=== PATIENT | male | born 1955 | race Caucasian/White ===

== ENCOUNTER 2019-04-03 23:01 | Inpatient (IN) | payer MEDICARE, MEDICAID ==
[~2019-04-03] VITALS: Ht 185.4 cm; Wt 127.5 kg
--- NOTE | ~2019-04-03 | PR ---
[place], [place] PROGRESS NOTE NAME: JED MCGINNIS UNIT #: [id number] ROOM: 316 DOCTOR: JED CAM MD BIRTHDATE: [birth year] DOS: 04/05/2019 INTERVAL NOTE CHIEF COMPLAINT: "Morning." SUMMARY OF THE VISIT: The patient was interviewed as he was resting in bed. After I called his name out several times, he woke up and very tersely stated good morning. Nurses report that this is generally how he speaks more in short bursts. In general, he has been compliant and has not been sexually inappropriate. He has been compliant with aspects of his care and his medications. MENTAL STATUS: He is alert and oriented to person, unclear place or time. Mood does seem to be fairly euthymic. Affect appropriate. No david, hypomania or psychosis. Short-term memory is very poor. PLAN: Screening examinations revealed him to have a low vitamin D level of 28. He is already on vitamin D replacement. He also has a low B12 level of 214. I will go ahead and replace this with vitamin B12 injection of 1000 mcg monthly. I will simultaneously increase the Namenda from 5 mg a day to 5 mg twice a day while increasing Exelon patch from 4.6 mg a day to 9.5 mg a day. Maintain Celexa, engage in individual and sharpe milieu activity, returning to the least restrictive environment when psychiatrically stable. EJD CAM MD CM:PNTRANS 48 JED CAM MD 04/05/19 1848 interface
--- NOTE | ~2019-04-03 | PR ---
[place], [place] PROGRESS NOTE NAME: JED MCGINNIS UNIT #: [id number] ROOM: 316 DOCTOR: JED CAM MD BIRTHDATE: [birth year] DOS: 04/10/2019 INTERVAL NOTE CHIEF COMPLAINT: "Coffee." SUMMARY OF THE VISIT: The patient was attempted to be interviewed as he was resting in bed. He awoke easily. The minute he saw me he stated coffee, coffee, and he does seem to associate me with coffee. He was pleasant, however, and smiled readily. Nurses report no behaviors. He has been pleasant and cooperative. He has not been sexually acting out in any way. MENTAL STATUS: It is limited due to his communication issues, but he seems bright, pleasant and cooperative, very euthymic. There was no agitation or aggression, no sedation or somnolence, no extrapyramidal symptoms or tardive dyskinesia. PLAN: I will continue his current psychotropics. Continue to engage in individual and sharpe milieu activity, returning to the least restrictive environment when psychiatrically stable. JED CAM MD CM:PNTRANS 0 JED CAM MD 04/10/19 1009 interface
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
--- NOTE | ~2019-04-03 | PR ---
[place], [place] PROGRESS NOTE NAME: JED MCGINNIS UNIT #: [id number] ROOM: 316 DOCTOR: JED CAM MD BIRTHDATE: [birth year] DOS: 04/09/2019 CHIEF COMPLAINT: "Coffee." SUMMARY OF THE VISIT: The patient was interviewed as he was resting in bed. As I approached, he smiled readily and quickly started to ask for coffee. He must equate me with coffee. He was pleasant and bright. There was no agitation, no aggression. There was no sexually inappropriate behavior. An overall nurses report that he has been much more compliant with care. He has not been resistive. He has not exhibited any sexually inappropriate behavior. MENTAL STATUS: He is alert and oriented to self only. Mood does seem to be trending towards euthymia. Affect is much more appropriate. There is no david, hypomania or psychosis. Short term memory, intermediate memory and long-term memory have gaps. PLAN: I will maintain his current psychotropic regimen, continue to engage in individual and sharpe milieu activity, returning then to the least restrictive environment when psychiatrically stable. JED CAM MD CM:PNTRANS [id number] JED CAM MD 04/10/19 0429 interface
--- NOTE | ~2019-04-03 | PR ---
[place], [place] PROGRESS NOTE NAME: JED MCGINNIS UNIT #: [id number] ROOM: 315 DOCTOR: JED CAM MD BIRTHDATE: [birth year] DOS: 04/11/2019 CHIEF COMPLAINT: "Coffee." SUMMARY OF THE VISIT: The patient was interviewed as he was eating his breakfast. He had most, if not all, of it completed and he was sipping on coffee. As I approached, once again, he smiled readily shaking my hand. He was bright and pleasant. Overall, his behavior has taken 180 degrees change from admission and he is very pleasant and cooperative. There has been no sexually inappropriate behavior. There has been no agitation or aggression. MENTAL STATUS: It is limited due to his dysphagia. He smiles readily and seemed bright and happy. There is no david or hypomania. There is no gross psychosis. Memory is poor. PLAN: I will recheck a valproic acid level in the a.m. on 04/13/2019 to ensure that it is therapeutic. Meanwhile, we will continue to engage in individual and sharpe milieu activity, returning to the least restrictive environment when psychiatrically stable. JED CAM MD CM:PNTRANS 1013 0053 JED CAM MD 04/12/19 0052 interface
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
--- NOTE | ~2019-04-03 | PR ---
[place], [place] PROGRESS NOTE NAME: DONNELL MCGINNIS UNIT #: [id number] ROOM: 315 DOCTOR: TANYA ZHOU CNP BIRTHDATE: [birth year] DOS: 04/13/2019 CHIEF COMPLAINT: "I am Donnell Jimenez." SUMMARY OF THE VISIT: The patient was interviewed as he sat in the dining room, waiting for his breakfast. He did engage in conversation. The patient reports that he slept okay and that he is hungry. Staff reports that the patient has been compliant with his medications. He did have a large bowel movement yesterday, which he did smear on the kasper and it was everywhere. Otherwise, there has been no behaviors with the patient, he did sleep 5 hours last night. He has been taking medication as prescribed. MENTAL STATUS EXAMINATION: The patient is alert and oriented to person and self. He was pleasant and cooperative with me this morning. No david or hypomania noted. No delusions or paranoia noted. No psychotic symptoms noted. No auditory or visual hallucinations noted. The patient's mood was euthymic. His affect is smiling. No agitation, irritability or aggression noted at this time. PLAN: The patient's VPA level was 57.8. I will continue the patient's medication as prescribed as he appears to be tolerating it without side effects and it does appear to be effective. Continue to encourage the patient to engage in individual and sharpe milieu activity. Continue fall and safety precautions. Plan is to return the patient to the least restrictive environment once he is considered psychiatrically stable. Tanya Zhou CNP CM:PNTRANS 0002 TANYA ZHOU CNP 04/14/19 0001 interface
--- NOTE | ~2019-04-03 | PR ---
[place], [place] PROGRESS NOTE NAME: JED MCGINNIS UNIT #: [id number] ROOM: 316 DOCTOR: JED CAM MD BIRTHDATE: [birth year] DOS: 04/07/2019 CHIEF COMPLAINT: "Coffee, coffee." SUMMARY OF THE VISIT: The patient was interviewed as he was sitting at the edge of the dining area. He was sipping on coffee, which was now empty. As I approached, he smiled readily and yelled out coffee, coffee, repeatedly smiling and shaking his head yes. He was pleasant and cooperative. Nurses note that he has been much more compliant and he has been not at all sexually inappropriate with any female peer or female staff member. He has been found masturbating in his room, which is perfectly okay as he has only done this in the privacy of his own bedroom. He does outwardly seem to be tolerating the current medication regimen well. I see no sedation, somnolence, extrapyramidal symptoms or tardive dyskinesia. MENTAL STATUS: He is alert and oriented to self, place, perhaps not to time. Mood does seem to be euthymic. Affect is much more appropriate. There is no david, hypomania or psychosis. Short term memory remains problematic. PLAN: His valproic acid level is just therapeutic at 55.7. I will go ahead and increase the Depakote from 500 mg t.i.d. to 500 mg q.i.d. in an attempt to bring the level between 60 and 80. Continue to engage in individual and sharpe milieu activity, returning to the least restrictive environment when psychiatrically stable. JED CAM MD CM:PNTRANS 0930 1026 JED CAM MD 04/07/19 1026 interface
--- NOTE | ~2019-04-03 | PR ---
[place], [place] PROGRESS NOTE NAME: JED MCGINNIS UNIT #: [id number] ROOM: 316 DOCTOR: JED CAM MD BIRTHDATE: [birth year] DOS: 04/08/2019 INTERVAL NOTE CHIEF COMPLAINT: "Coffee." SUMMARY OF THE VISIT: The patient was interviewed in the dining area. He was sitting in front of an almost strong cup of black coffee. He had already eaten breakfast. As I approached, he smiled pointed to his coffee and again loudly stated coffee, coffee. Overall, he has been much more pleasant and much more redirectable. There has been no sexual acting out over the last several days and he is pleasant upon approach. He is tolerating the medication regimen well and I see no sedation, somnolence, extrapyramidal symptoms or tardive dyskinesia. MENTAL STATUS: He is alert and oriented to self, unclear place, certainly not time. Mood does seem to be more euthymic and he smiles more readily. There is no hypomania or david. There are no gross psychotic symptoms. Memory has gaps. PLAN: I would maximize out his dose of Exelon patch, bringing the dose from 9.5 to 13.3 mg a day. We will continue to engage in individual and sharpe milieu activity, returning to the least restrictive environment when psychiatrically stable. JED CAM MD CM:PNTRANS 0921 1039 JED CAM MD 04/08/19 1039 interface
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
--- NOTE | ~2019-04-03 | PR ---
[place], [place] PROGRESS NOTE NAME: [id number] UNIT #: [id number] ROOM: 315 DOCTOR: TANYA ZHOU CNP BIRTHDATE: [birth year] DOS: 04/12/2019 CHIEF COMPLAINT: "I am Bill." SUMMARY OF THE VISIT: The patient was interviewed as he sat in the dining room, eating his breakfast. The patient did engage in conversation with me; however, he is unable to answer questions appropriately and his speech was somewhat nonsensical. Staff reports that the patient can refuse his medications. He has been isolative and irritable and that he remains confused. MENTAL STATUS EXAMINATION: The patient was alert and oriented to person and self. He was pleasant with me. No david or hypomania noted. No delusions or paranoia noted. No psychotic symptoms noted. No auditory or visual hallucinations noted. The patient's mood was calm. His affect is congruent with mood. No agitation or irritability or aggression noted at this time. PLAN: I am going to continue the patient's medication as prescribed at this time. He is scheduled for a VPA level tomorrow morning. Continue to monitor for effectiveness of medication as well as side effects. Continue to encourage the patient to engage in individual and sharpe milieu activity. Continue fall and safety precautions. Plan is to return the patient to the least restrictive environment once he is considered psychiatrically stable. Tanya Zhou CNP CM:PNTRANS 1000 [id number] TANYA ZHOU CNP 04/12/19 2339 interface
[2019-04-04] MEDS ORDERED: HALDOL5 MG PO (00:07)
[2019-04-04] MEDS ORDERED: ZOLOFT50 MG PO (00:07)
[2019-04-04] MEDS ORDERED: THERAPEUTIC T (00:09)
[2019-04-04] MEDS ORDERED: Tegretol-Xr 20200 MG PO (00:10)
[2019-04-04] MEDS ORDERED: KEPPRA500 MG PO (00:11)
[2019-04-04] MEDS ORDERED: TEGRETOL200 MG PO (00:12)
[2019-04-04] MEDS ORDERED: KLOR-CON M2020 ME1 PO (00:14)
[2019-04-04] MEDS ORDERED: VITAMIN D32000 UNI1 PO (00:14)
[2019-04-04] MEDS ORDERED: CALCIUM + D3 E1 EACH PO (00:15)
[2019-04-04] MEDS ORDERED: LASIX40 MG PO (00:16)
[2019-04-04] MEDS ORDERED: ASPIRIN ADULT L81 M1 PO (00:16)
[2019-04-04] MEDS ORDERED: LIPITOR10 MG PO (00:17)
[2019-04-04] MEDS ORDERED: MIRALAX POWDER17 G1 PO (00:18)
[2019-04-04] MEDS ORDERED: NATURE'S BLEND M3 MG PO (00:18)
[2019-04-04 03:50] VITALS: BP 130/60
--- NOTE | 2019-04-04 03:50 | NUR ---
JED MCGINNIS a 63 year old M admitted via ambulance from the ADMITTING as a emergency 72 hr. hold admission. Arrived on unit at 0350AM. ALLERGIES: INDERAL, CT DYE, TUBERCULIN TEST. Vital signs are: 97.1-72-17 130/60. CLIENT WAS PINK SLIPPED AND UNABLE TO sign the following forms with stated understanding: Authorization For The Release of Medical Information, Clothing List, Consent to Voluntary Admission and Hospitalization, Consent and Release Forms/Receipt of Rights, Acknowledgement of Advance Directive Information, Behavioral Health Consent Form, and Informed Consent of Medications. Admitted under the services of JED Shanks MD. A search was conducted and hazardous articles were removed. Client WILL BE oriented to the unit. CURRENTLY CLIENT REFUSES TO PARTICIPATE IN ADMISSION PROCESS OR SPEAK TO AND STAFF MEMBER. REFUSES SKIN ASSESSMENT SUGEY JEONG
--- NOTE | 2019-04-04 05:59 | NUR ---
DR CHAMORRO HERE TO SEE CLIENT. ALL PAPERWORK PROVIDED. ALL QUESTIONS ANSWERED
[2019-04-04 07:56] VITALS: BP 123/68
--- NOTE | 2019-04-04 08:06 | NUR ---
DR. STRAUSS ON UNIT TO ASSESS PATIENT.
--- NOTE | 2019-04-04 09:36 | NUR ---
Treatment Plan meeting was held this a.m. with Dr. Jeong, RN, AT, SW and [employer] Machine Operator. Plan for discharge next week. [facility] Will reach out to facility today to discuss discharge planning.
--- NOTE | 2019-04-04 09:37 | NUR ---
Clinical Updates faxed to [facility] [place] [facility] [place].
--- NOTE | 2019-04-04 10:52 | NUR ---
Left a voicemail message for pt's daughter/guardian Ariana Melgar requesting a return call.
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
--- NOTE | 2019-04-04 14:10 | NUR ---
Occupational Therapy evaluation completed on 3 with full eval to follow. Precautions include 3N unit precautions, elopement precautions, TBI hx, impulsive behavior, +2 transfer assist, assist with all ADLs, CROW, high complexity level 63248 via chart review, testing and evaluation. Recommend no further OT and return to LTC with 24 hr supervision and assist. Thank you. Kori Yousif OTR/L
--- NOTE | 2019-04-04 14:10 | NUR ---
PHYSICAL THERAPY Physical therapy evaluation only complete, 3N. Moderate complexity evaluation (77100) per chart review and evaluation. Recommend continued gait and mobility with 1 assist from nursing for safety. Recommend return to LTC facility at discharge. Thank you. Marilu Belcher,PT,DPT.
--- NOTE | 2019-04-04 16:37 | NUR ---
VOLUNTARY CONSENT VERBAL CONSENT WITH GUARDIAN, TIANA HERNANDEZ.
--- NOTE | 2019-04-04 16:58 | NUR ---
P: PATIENT IN BED PLAYING RECTUM AND FECES I: REDIRECTED AND BED BATH PROVIDED R: EFFECTIVE. PATIENT IS ALERT TO SELF WITH CONFUSION; ABLE TO VOICE NEEDS. LONG/SHORT TERM MEMORY DEFICITS. MOOD IS STABLE WITH FLAT AFFECT. NO VOICED STATEMENT OF HI/SI OR PAIN. NO RESPONSE TO INTERNAL STIMULI. 1 PERSON ASSIST WITH ACTIVITIES OF DAILY LIVING, INCONTINENT OF BOWEL AND BLADDER. SET UP FOR MEALS, INTAKES ARE GOOD WITH ADEQUATE FLUIDS. INTERACTIVE WITH STAFF AND UP IN DINING ROOM WITH OTHER PATIENTS. MEDICATION COMPLAINT. Q 15 MINUTE SAFETY CHECKS MAINTAINED. NO SEXUALLY INAPPROPRIATELY GESTURES/STATEMENTS. NO AGGRESSION NOTED. P: CONTINUE TO MONITOR FOR AGGRESSION AND SEXUALLY INAPPROPRIATE BEHAVIORS, PROVIDE ONE ON ONE AND REDIRECTION NEEDED.
[2019-04-04 19:31] VITALS: BP 130/73
--- NOTE | 2019-04-04 22:03 | NUR ---
Patient alert to person only with confusion. ST/LT memory deficits noted. Patient has not had any verbal response to this nurse. No signs of any response to internal stimuli noted at this time. No signs of any sexually inappropriate behavior,words,or gestures at this time. Patient compliant with medications without any difficulty. Patient isolative to room this evening. Plan to continue to encourage medication compliance. Q 15 minute medication compliance continued and maintained. See [facility] flowsheet for further documentation.
--- NOTE | 2019-04-05 00:32 | NUR ---
24 HR chart check completed.
--- NOTE | 2019-04-05 04:54 | NUR ---
Patient slept approx. 9 hours throughout shift. Q 15 minute safety checks continued and maintained.
[2019-04-05 07:14] LABS: BASO # 0.1 10*3/uL (0.0-0.1); EOS # 0.3 10*3/uL (0.0-0.4); EOS % 4.6 % (1.0-4.0); HEMATOCRIT 39.7 % (42.0-52.0); HEMOGLOBIN 13.2 g/dl (14.0-18.0); LYMPH # 2.6 10*3/uL (1.3-4.4); LYMPH % 37.4 % (27.0-41.0); MEAN CELL VOLUME 98.8 fl (80.0-94.0); MEAN CORPUSCULAR HGB 32.8 pg (27.0-31.0); MEAN CORPUSCULAR HGB CONC 33.2 g/dl (33.0-37.0); MEAN PLATELET VOLUME 9.6 fl (9.6-12.3); MONO # 0.5 10*3/uL (0.1-1.0); MONO % 7.6 % (3.0-9.0); NEUT # 3.5 10*3/uL (2.3-7.9); NEUT % 49.3 % (47.0-73.0); PLATELET COUNT AUTOMATED 260 10*3/uL (130-400); RED BLOOD COUNT 4.02 10*6/uL (4.50-5.90); RED CELL DISTRI WIDTH 12.4 % (0-14.5)
[2019-04-05 07:37] LABS: ALKALINE PHOSPHATASE 128 U/L (45-117); BUN 15 mg/dl (7-24); CHLORIDE 107 mmol/L (98-107); POTASSIUM 3.7 mmol/L (3.5-5.1); SGOT/AST 19 IU/L (3-35); SGPT/ALT 24 U/L (12-78); SODIUM 141 mmol/L (136-145); TOTAL PROTEIN 6.8 gm/dL (6.4-8.2)
[2019-04-05 07:43] LABS: THYROID STIM HORMONE (HS) 0.865 uIU/ml (0.358-4.75)
[2019-04-05 07:52] VITALS: BP 142/60
--- NOTE | 2019-04-05 10:30 | NUR ---
DR. STRAUSS ON UNIT TO ASSESS PATIENT.
--- NOTE | 2019-04-05 12:32 | NUR ---
AM GROUP/EXERCISE/BINGO! PT ATTENDED AND PARTICIPATED IN ALL GROUP ACTIVITY'S. PT DID NEED SOME HELP MARKING BINGO NUMBERS WHICH A PEER ASSITED HIM WITH. PT DID BECOME AGITATED YELLING OUT "OH SHIT!" BUT EASILY REDIRECTED. PT DID NOT EXPRESS ANY SEXUALLY INAPPRORIATE BEHVIOR OR ANXIETY AT THIS TIME. PT WILL CONTINUE TO ATTEND AND PARTICIPATE IN GROUP TO BEST OF ABILITY.
--- NOTE | 2019-04-05 13:12 | NUR ---
PATIENT RECEIVED VITAMIN B12 1000MCG IM IN LEFT DELTOID AND TOLERATED WELL.
--- NOTE | 2019-04-05 15:52 | NUR ---
PM GROUP/FOOTBALL/ART PT ATTENDED AN DPARTICIPATED BY WATCHING FOOTBALL GAME. PT PLEASANT BUT WAS BOTHERED BY ANOTHER PT WANDERING ACTIVITY ROOM PT KEPT YELLIN G"SIT DOWN, SIT DOWN!" PT EASILY REDIRECTED.PT DID NOT EXPRESS ANY SEXUALLY INAPPROPRIATE BEHAVIORS AT THIS TIME AN DIWLL CONTINUE TO ATTEND AN DPARTICIPATE TO BEST OF PT ABILITY IN FUTURE RGOUP SESSIONS.
--- NOTE | 2019-04-05 18:42 | NUR ---
PATIENT IS ALERT TO SELF WITH CONFUSION. MEMORY DEFICITS NOTED. MOOD IS STABLE. NO RESPONSE TO INTERNAL STIMULI. NO VOICED STATEMENT OF HI/SI OR PAIN. MEDICATION COMPLAINT. Q 15 MINUTE SAFETY CHECKS MAINTAINED, 2-3 PERSON ASSIST WITH ACTIVITIES OF DAILY LIVING, INCONTINENT OF BOWEL AND BLADDER. SET UP FOR MEALS, INTAKES ARE GOOD WITH ADEQUATE FLUIDS. CONTINUE TO MONITOR FOR AGGRESSION AND SEXUALLY INAPPROPRIATE BEHAVIORS. PROVIDE ONE ON ONE AND REDIRECTION NEEDED.
[2019-04-05 20:00] VITALS: BP 140/78
--- NOTE | 2019-04-06 04:58 | NUR ---
P-IRRITABLE MOOD, CONFUSION I-ASSESS ORIENTATION, MOOD, AND BEHAVIOR. PROVIDE 1:1 FOR VENTILATION OF FEELINGS WITH EMOTIONAL SUPPORT NEEDED. ENCOURAGE MEDICATION COMPLIANCE AND EDUCATE. MONITOR SLEEP. R- PATIENT ALERT AND ORIENTED TO SELF, CONFUSED PER BASELINE. PT ISOLATIVE TO SELF, SAT IN DINING ROOM FOR HS SNACK AND TO WATCH A MOVIE. PT BECAME IRRITABLE WHILE OBSERVING ANOTHER PEER'S BEHAVIORS, STARTED YELLING AT PEER STATING "YOU NEED TO SIT DOWN, WHAT ARE YOU DOING". PT UNRECEPTIVE TO REDIRECTION AND STATES "OH SHIT, SHIT!" PT MEDICATION COMPLIANT WITHOUT DIFFICULTY, UNABLE TO EDUCATE DUE TO COGNITION. PT ASSISTED TO BED WITH MINIMALLY DIFFICULTY, COMPLIANT WITH HOC, NO SEXUALLY INAPPROPRIATE BEHAVIOR NOTED. PT VOICES NO SI/HI OR PAIN. NO NOTED RESPONDING TO INTERNAL STIMULI. PATIENT CURRENTLY LAYING DOWN WITH EYES CLOSED, RESPIRATIONS EASY AND REGULAR, NO SIGNS OR SYMPTOMS OF DISTRESS NOTED. P-CONTINUE TO MONITOR MOODS AND BEHAVIORS. PROVIDE REORIENTATION AND REDIRECTION NEEDED. PROVIDE 1:1 WITH EMOTIONAL SUPPORT. ENCOURAGE MEDICATION COMPLIANCE AND EDUCATE. MAINTAIN Q 15 MIN CHECKS.
--- NOTE | 2019-04-06 06:01 | NUR ---
PATIENT OBSERVED ON Q 15 MIN CHECKS TO HAVE SLEPT APPROX 2 HOURS WITH MULTIPLE AWAKENINGS NOTED DURING STAFF CHECKS OF LAYING QUIETLY IN BED. NO SIGNS OR SYMPTOMS OF DISTRESS NOTED.
--- NOTE | 2019-04-06 06:46 | NUR ---
24 HOUR CHART CHECK COMPLETED.
[2019-04-06 07:54] VITALS: BP 135/75
--- NOTE | 2019-04-06 09:03 | NUR ---
Patient resting quietly with no c/o discomfort. Respirations easy and regular. Vital signs stable. No overt distress. MADIHA CAMPBELL
--- NOTE | 2019-04-06 12:31 | NUR ---
AM GROUP/BIRDHOUSES/MUSIC PT ATTENDED AND PARTICIPATED BY OBSERVING PEERS. PT SMILING AND LAUGHING THORUGHOUT GROUP.PT DID NOT EXPRESS ANY SEXUALLY INAPPROPRIATE BEHAVIORS AT THIS TIME AND WILL CONTINUE TO ATTEND AN DPARTICIPATE TO BEST OF PT ABILITY.
[2019-04-06 20:00] VITALS: BP 134/79
--- NOTE | 2019-04-06 23:10 | NUR ---
P-IRRITABILITY, CONFUSION I-ASSESS ORIENTATION, MOOD, AND BEHAVIOR. REORIENT AND REDIRECT NEEDED. PROVIDE 1:1 FOR VENTILATION OF FEELINGS WITH EMOTIONAL SUPPORT NEEDED. ENCOURAGE MEDICATION COMPLIANCE AND EDUCATE. MONITOR SLEEP. R- PATIENT ALERT AND ORIENTED TO SELF, CONFUSED PER BASELINE. PT ISOLATIVE TO ROOM AND BED SINCE BEGINNING OF SHIFT, MOOD STABLE. MINIMAL IRRITABILITY/ AGITATION NOTED DURING INTERACTIONS WITH STAFF OR HANDS ON CARE, PT STATES "OH SHIT". NO SEXUALLY IN APPROPRIATE BEHAVIOR NOTED. PT MEDICATION COMPLIANT WITHOUT DIFFICULTY, UNABLE TO EDUCATE DUE TO COGNITION. PT VOICES NO SI/HI OR PAIN. NO NOTED RESPONDING TO INTERNAL STIMULI. PATIENT CURRENTLY LAYING DOWN WITH EYES CLOSED, RESPIRATIONS EASY AND REGULAR, NO SIGNS OR SYMPTOMS OF DISTRESS NOTED. P-CONTINUE TO MONITOR MOODS AND BEHAVIORS. PROVIDE REORIENTATION AND REDIRECTION NEEDED. PROVIDE 1:1 WITH EMOTIONAL SUPPORT. ENCOURAGE MEDICATION COMPLIANCE AND EDUCATE. MAINTAIN Q 15 MIN CHECKS.
--- NOTE | 2019-04-07 00:45 | NUR ---
24 HOUR CHART CHECK COMPLETED.
--- NOTE | 2019-04-07 05:01 | NUR ---
PATIENT OBSERVED ON Q 15 MIN CHECKS TO HAVE SLEPT APPROX 7 HOURS WITH X1 BRIEF AWAKENING FOR INCONTINENT CARE. NO SIGNS OR SYMPTOMS OF DISTRESS NOTED.
[2019-04-07 08:17] VITALS: BP 141/76
--- NOTE | 2019-04-07 10:46 | NUR ---
DR. SHEPPARD ON UNIT TO ASSESS PT, UPDATE PROVIDED.
--- NOTE | 2019-04-07 12:33 | NUR ---
AM GROUP PT WAS PRESENT FOR MORNING GROUP THERAPY BUT DID NOT PARTICIPATE. PT WAS SLEEPING IN A CHAIR AT THE BACK OF THE ROOM
--- NOTE | 2019-04-07 13:49 | NUR ---
P: PT REFUSED 1300 PO MEDS. PT IRRITABLE WITH STAFF AT TIMES THROUGHOUT THE DAY. PT ISOLATIVE TO SELF THROUGHOUT THE DAY, REFUSING TO PARTICIPATE IN GROUPS/ACTIVITES. I: PROVIDED EMOTIONAL SUPPORT AND 1:1 FOR PT TO VOICE FEELINGS, ENCOURAGED MED COMPLIANCE AND PROVIDED MED EDUCATION, ENCOURAGE GROUP PARTICIPATION AND SOCIALIZATION R: UNABLE TO PROVIDE MED EDUCATION D/T COGNITION, PT CONTINUES TO REFUSE 1300 PO MEDS. PT CONTINUED TO REFUSE TO PARTICIPATE IN GROUP, CHOOSING TO NAP IN THE BACK OF THE ROOM INSTEAD. PT ALERT TO PERSON ONLY, CONFUSION AND SHORT TERM MEMORY DEFICITS NOTED PER PT BASELINE. PT AMBULATORY WITH 1 STAFF ASSIST, GAIT UNSTEADY. PT INCONTINENT OF BOWEL AND BLADDER, CARE PROVIDED NEEDED. P: MONITOR PT BEHAVIORS ON Q15 MIN SAFETY CHECKS, ENCOURAGE GROUP PARTICIPATION AND SOCIALIZATION, ENCOURAGE MED COMPLIANCE, PROVIDE EMOTIONAL SUPPORT AND 1:l FOR PT TO VICE FEELINGS
--- NOTE | 2019-04-07 17:13 | NUR ---
PM GROUP/MUSIC/ART PT ATTENDED AND PARTICIPATED TO BEST OF ABILITY. PT TAPPING FOOT TO MUSIC, OBSERVING PEERS, AND DRINKING COFFE. PT SMILING THROUGHOUT GROUP. PT DID NOT BECOME AGGRESSIVE OR SEXUALLY INAPPROPRIATE AT THIS TIME AN DWILL CONTIBNUE TO ATTEND AN DPARTICIPATE TO BEST OF PT ABILITY.
[2019-04-07 19:17] VITALS: BP 138/62
--- NOTE | 2019-04-07 19:59 | NUR ---
24 HR chart check completed.
--- NOTE | 2019-04-07 20:34 | NUR ---
EVENING/RIDDLES/GAMES PT ATTENDED BUT DID NOT PARTICIPATE AT THIS TIME DUE TO LEVELS OF COGNITION. PT WILL CONTINUE TO BE ENCOURAGED TO ATTEND AN DPARTICIPATE TO BEST OF ABILITY IN FUTURE GROUP SESSIONS. PT DID NOT BECOME AGGRESSIVE OR SEXUALLY INAPPROPRIATE AT THIS TIME.
--- NOTE | 2019-04-07 23:03 | NUR ---
P-CONFUSION, MILDLY IRRITABLE I-PROVIDE SHORT VERBAL INTERACIONS & DIRECTIVES, ADMINISTER MEDS, MONITOR SLEEP R-PT ALERT TO PERSON ONLY. COGNITIVE DEFICITS, SPENT THE EVENING SITTING IN THE DINING ROOM WATCHING A FOOTBALL GAME QUIETLY AMONG PEERS. VERY LIMITED WITH VERBAL INTERACTIONS & MOSTLY SMILES AT STAFF. REQUIRED PROMPTING TO TAKE HS MEDICATIONS. STATED, "COFFEE". WHEN PROMPTED TO GO TO BED, HE REPLIED "AH SHIT". P-CONTINUE TO MONITOR. PROVIDE PHYSICAL ASSISTANCE & EMOTIONAL SUPPORT NEEDED.
--- NOTE | 2019-04-08 05:29 | NUR ---
PT HAS SLEPT PAST 0000
[2019-04-08 07:44] VITALS: BP 142/65
--- NOTE | 2019-04-08 08:30 | NUR ---
Treatment Plan meeting with Dr. Jeong, RN, AT, SW and Hoop Riveting Machine Operator Helper. Plan for discharge Sunday with Possible Sunday discharge. Pt. is LTC at [facility].
--- NOTE | 2019-04-08 10:06 | NUR ---
DR. VALLADARES ON UNIT TO ASSESS PT, UPDATE PROVIDED.
--- NOTE | 2019-04-08 11:49 | NUR ---
AM GROUP/POSITIVITY PT WAS PRESENT FOR MORNING GROUP THERAPY BUT IS UNABLE TO PARTICIPATE DUE TO COGNITIVE IMPAIRMENT. PT SAT AT A TABLE AND FELL ASLEEP IN A SEATED POSITION.
--- NOTE | 2019-04-08 12:15 | NUR ---
P: PT IRRITABLE WITH MED ADMINISTRATION. PT ISOLATIVE TO SELF, NO SOCIALIZATION WITH STAFF OR PEERS. I: PROVIDE EMOTIONAL SUPPORT AND 1:l FOR PT TO VOICE FEELINGS, ENCOURAGE MED COMPLIANCE AND PROVIDE MED EDUCATION, ENCOURAGE GROUP PARTICIPATION AND SOCIALIZATION R: PT ALERT TO PERSON ONLY, CONFUSION AND SHORT TERM MEMORY DEFICITS NOTED PER PT BASELINE. PT CONTINUES TO BE IRRITABLE WITH MEDS, COMPLIANT WITH MUCH ENCOURAGEMENT, UNABLE TO PROVIDE MED EDUCATION D/T COGNITION. PT CONTINUES TO BE ISOALTIVE TO SELF. NO HALLUCINATIONS OR DELUSIONS NOTED. NO SUICIDAL THOUGHTS OR BEHAVIORS NOTED. PT AMBULATORY WITH 1-2 STAFF ASSIST. PT CONTINENT OF BOWEL AND BLADDER, EPISODES OF INCONTNENCE NOTED, CARE PROVIDED NEEDED. P: MONTIOR PT BEHAVIORS ON Q15 MIN SAFETY CHECKS, ENCOURAGE MED COMPLIANCE, PROVIDE EMOTIONAL SUPPORT AND 1:1 FOR PT TO VOICE FEELINGS, ENCOURAGE GROUP PARTICIPATION AND SOCIALIZATION.
--- NOTE | 2019-04-08 13:58 | NUR ---
Received a message from pt's dtr/guardian Ariana Melgar stating that she is unable to obtain information about pt because she does not have a password. Phoned Ariana and left a message providing an update about pt and supplying a password for her. Password was also written on pt board in treatment team room. Pt will smile at this marine underwriter when spoken to but does not speak. No inappropriate behavior was observed by this marine underwriter.
--- NOTE | 2019-04-08 15:45 | NUR ---
PM GROUP/ART AND MUSIC PT WAS PRESENT FOR AFTERNOON GROUP THERAPY BUT IS UNABLE TO PARTICIPATE AT THIS TIME DUE TO COGNITIVE IMPAIRMENT. PT SMILES WHEN SPOKEN TO BUT DOES NOT VERBALLY RESPOND. PT EXHBITED NO AGGRESSIVE OR INAPPROPRIATE BEHAVIORS WHILE IN GROUP.
[2019-04-08 19:17] VITALS: BP 141/72
--- NOTE | 2019-04-08 20:05 | NUR ---
24 HR chart check completed.
--- NOTE | 2019-04-08 22:40 | NUR ---
P-CONFUSION, MILDLY IRRITABLE I-PROVIDE SHORT VERBAL INTERACIONS & DIRECTIVES, ADMINISTER MEDS, MONITOR SLEEP R-PT ALERT TO PERSON ONLY. COGNITIVE DEFICITS, SAT IN THE DINING ROOM BRIEFLY & ATE SNACK. VERY LIMITED WITH VERBAL INTERACTIONS & MOSTLY SMILES AT STAFF. COMPLIANT WITH HS MEDICATIONS. P-CONTINUE TO MONITOR. PROVIDE PHYSICAL ASSISTANCE & EMOTIONAL SUPPORT NEEDED.
--- NOTE | 2019-04-09 05:35 | NUR ---
PT SLEPT PAST 2099.
[2019-04-09 08:09] VITALS: BP 134/69
--- NOTE | 2019-04-09 11:53 | NUR ---
AM GROUP PT WAS PRESENT FOR MORNING GROUP THERAPY BUT IS UNABLE TO PARTICIPATE DUE TO COGNITIVE IMPAIRMENT.
--- NOTE | 2019-04-09 15:40 | NUR ---
PM GROUP PT DID NOT ATTEND AFTERNOON GROUP THERAPY. PT WAS IN BED RESTING
[2019-04-09 19:44] VITALS: BP 137/62
--- NOTE | 2019-04-10 03:19 | NUR ---
P-IRRITABILITY, CONFUSION I-ASSESS ORIENTATION, MOOD, AND BEHAVIOR. REORIENT AND REDIRECT NEEDED. PROVIDE 1:1 FOR VENTILATION OF FEELINGS WITH EMOTIONAL SUPPORT NEEDED. ENCOURAGE MEDICATION COMPLIANCE AND EDUCATE. MONITOR SLEEP. R- PATIENT ALERT AND ORIENTED TO SELF, CONFUSED PER BASELINE. PT CALM, MOOD STABLE. MINIMAL IRRITABILITY/ AGITATION NOTED DURING INTERACTIONS WITH STAFF OR HANDS ON CARE, PT STATES "OH SHIT". NO SEXUALLY IN APPROPRIATE BEHAVIOR NOTED. PT REFUSED HS MEDICATIONS, STATING "I AINT TAKING THAT", UNABLE TO EDUCATE OR REDIRECT DUE TO COGNITION. PT VOICES NO SI/HI OR PAIN. NO NOTED RESPONDING TO INTERNAL STIMULI. PATIENT CURRENTLY LAYING DOWN WITH EYES CLOSED, RESPIRATIONS EASY AND REGULAR, NO SIGNS OR SYMPTOMS OF DISTRESS NOTED. P-CONTINUE TO MONITOR MOODS AND BEHAVIORS. PROVIDE REORIENTATION AND REDIRECTION NEEDED. PROVIDE 1:1 WITH EMOTIONAL SUPPORT. ENCOURAGE MEDICATION COMPLIANCE AND EDUCATE. MAINTAIN Q 15 MIN CHECKS.
--- NOTE | 2019-04-10 05:10 | NUR ---
24 HOUR CHART CHECK COMPLETED.
--- NOTE | 2019-04-10 06:14 | NUR ---
PATIENT OBSERVED ON Q 15 MIN SAFETY CHECKS TO HAVE SLEPT APPROX 6 HOURS WITH NO AWAKENINGS OR SIGNS AND SYMPTOMS OF DISTRESS NOTED.
[2019-04-10 07:48] VITALS: BP 144/70
--- NOTE | 2019-04-10 08:30 | NUR ---
Treatment Plan meeting with Dr. Jeong, RN, AT, and Watch Repairer. Plan for discharge Sunday. Pt. will return to [facility].
--- NOTE | 2019-04-10 11:52 | NUR ---
AM GROUP PT DID NOT ATTEND MORNING GROUP THERAPY. PT WAS IN BED RESTING
--- NOTE | 2019-04-10 14:37 | NUR ---
P: PT ISOLATIVE TO ROOM, REFUSING TO COME OUT FOR AM GROUP, BREAKFAST OR LUNCH. PT REFUSED AM PO MEDS. I: ENCOURAGED MED COMPLIANCE AND PROVIDE MED EDUCATION, PROVIDE EMOTIONAL SUPPORT AND 1:! FOR PT TO VOICE FEELINGS, ENCOURAGE PO INTAKE, ENOCURAGE GROUP PARTICIPATION AND SOCIALIZATION R: ALL INTERVENTIONS INEFFECTIVE, UNABLE TO PROVIDE MED EDUCATION D/T COGNITION. PT CONTINUES TO REFUSE MEDS, BREAKFAST, LUNCH AND GROUP. PT ALERT TO PERSON ONLY, CONFUSION AND SHORT TERM MEMORY DEFICITS NOTED PER PT BASELINE. NO HALLUCINATIONS OR DELUSIONS NOTED. NO SUICIDAL THOUGHTS OR BEHAVIORS NOTED. P: MONITOR PT BEHAVIORS ON Q15 MIN SAFETY CHECKS, ENCOURAGE MED COMPLIANCE, ENCOURAGE PO INTAKE, ENCOURAGE GROUP PARTICIPATION AND SDOCIALIZATION, PROVIDE EMOTIONAL SUPPORT AND 1:l FOR PT TO VOICE FEELINGS.
--- NOTE | 2019-04-10 15:48 | NUR ---
PM GROUP/MOVIE AND CRAFTS PT WAS PRESENT FOR AFTERNOON GROUP THERAPY BUT IS UNABLE TO PARTICIPATE DUE TO COGNITIVE IMPAIRMENT. PT SAT AT A TABLE AND SMILED THE ENTIRE TIME. PT DOES NOT CONVERSE OR SHOW ANY INTEREST IN THE ACTIVITIES OF PEERS. PT EXHIBITED NO AGITATION, AGGRESSION OR SEXUAL INAPPROPRIATENESS WHILE IN GROUP
[2019-04-10 20:09] VITALS: BP 139/72
--- NOTE | 2019-04-11 02:31 | NUR ---
24 HR chart check completed.
--- NOTE | 2019-04-11 04:58 | NUR ---
Patient alert to person only with confusion. ST/LT memory deficits noted. Patient has not had any verbal response to this nurse. No signs of any response to internal stimuli noted at this time. No signs of any sexually inappropriate behavior,words,or gestures at this time. Patient compliant with medications with much encouragement. Patient isolative to room this evening. Plan to continue to encourage medication compliance. Q 15 minute medication compliance continued and maintained. See [facility] flowsheet for further documentation.
--- NOTE | 2019-04-11 05:25 | NUR ---
Patient slept approx. 7 hours throughout shift. Q 15 minute safety checks continued and maintained.
[2019-04-11 08:00] VITALS: BP 118/67
--- NOTE | 2019-04-11 08:30 | NUR ---
Treatment Plan meeting with Dr. Jeong, RN, AT, and [facility]. Plan for discharge Sunday. Pt. is LTC at [facility].
--- NOTE | 2019-04-11 09:28 | NUR ---
PATIENT REFUSED ALL AM MEDICATIONS. MULTIPLE REAPPROACHES AND EDUCATION PROVIDED, ALL ATTEMPTS INEFFECTIVE.
--- NOTE | 2019-04-11 10:40 | NUR ---
DR. SHEPPARD ON FLOOR TO ASSESS PT, UPDATE PROVIDED.
--- NOTE | 2019-04-11 12:29 | NUR ---
Spoke with Margoth Smith at [facility]. Notified of plans to discharge Sunday with return to [facility]. Clinical Updates faxed to facility.
--- NOTE | 2019-04-11 12:46 | NUR ---
Shift chart check completed.
--- NOTE | 2019-04-11 15:22 | NUR ---
P- ALERT TO PERSON ONLY. MOOD LABILE. ISOLATIVE TO ROOM, NAPPING FREQUENTLY THROUGHOUT THE DAY. REFUSE TO PARTICIPATE IN GROUP THERAPIES. REFUSED AM MEDICATIONS. I- REORIENT FREQUENTLY WHEN CONFUSION IS NOTED. ASSESS MOOD, ORIENTATION, SI/HI, HALLUCINATIONS, DELUSIONS OR PAIN. ENCOURAGE TO INTERACT WITH PEERS AND STAFF. ENCOURAGE TO PARTICIAPTE/ATTEND GROUP THERPAIES FOR EMOTIONAL SUPPORT AND VENTILATION OF FEELINGS. PROVIDE MEDICATIONS ON TIME WITH EDUCAITON ON EACH. ENCOURAGE MEDICATION COMPLIANCE AND EDUCATE THE IMPORTANCE OF COMPLIANCE FOR PATIENTS INDIVIDUAL CASE. 1:1 INTERACTION WITH EMOTIONAL SUPPORT PROVIDED. R- REORIENTATION INEFFECTIVE, REMAINS AT BASELINE CONFUSION. MOOD LABILE. DENIES HALLUCINATIONS, SI/HI OR PAIN. NO S/S OF INTERACTING WITH INTERNAL STIMULI. NO DELUSIONAL THOUGHT PROCESS NOTED. NO S/S OF DISTRESS NOTED. RESPS EVEN AND UNLABORED ON ROOM AIR. PATIENT REFUSED AM MEDICATIONS EVEN WITH MUCH ENCOURAGEMENT, EDUCATION, AND REAPPROACHES. PATIENT DID TAKE NOON MEDICATIONS. PATIENT REMAINS ISOLATIVE TO ROOM, COMES OUT TO DINING ROOM FOR MEALS. INTERACTIVE WHEN SPOKEN TO FIRST. GAIT STEADY WHILE AMBULATING. REFUSE TO ATTEND/PARTICIPATE IN GROUP THERAPY OR PARTICIPATE IN ACTIVITIES. P- REORIENT FREQUENTLY WHEN CONFUSION IS NOTED. 1:1 INTERACTION WITH EMOTIONAL SUPPORT PROVIDED WHEN NECESSARY. ENCOURAGE TO ATTEND/PARTICIPATE IN GROUP THERAPIES. PROVIDE MEDICATIONS ON TIME WITH EDUCATION ON EACH. ENCOURAGE COMPLIANCE WITH MEDICATIONS AND EDUCATE THE IMPORTANCE ON FOR INDIVIDUAL CASE. Q15 MINUTE CHECKS MAINTAINED FOR SAFETY.
--- NOTE | 2019-04-11 15:35 | NUR ---
PM GROUP PT DID NOT ATTEND AFTERNOON GROUP THERAPY. PT STAYED IN BED NAPPING
[2019-04-11 20:00] VITALS: BP 128/75
--- NOTE | 2019-04-11 22:04 | NUR ---
Patient alert to person only with confusion. ST/LT memory deficits noted. Patient has not had any verbal response to this nurse. No signs of any response to internal stimuli noted at this time. No signs of any sexually inappropriate behavior,words,or gestures at this time. Patient non- compliant with medications with much encouragement. Patient isolative to room this evening. Plan to continue to encourage medication compliance. Q 15 minute medication compliance continued and maintained. See [facility] flowsheet for further documentation.
--- NOTE | 2019-04-12 00:30 | NUR ---
24 HR chart check completed.
--- NOTE | 2019-04-12 05:28 | NUR ---
Patient slept approx. 6 1/2 hours throughout shift. Q 15 minute safety checks continued and maintained.
--- NOTE | 2019-04-12 08:02 | NUR ---
PT AWAKE AND ALERT. RESPS EASY AND EVEN ON ROOM AIR. FEEDING SELF BREAKFAST IN DINING ROOM WITH PEERS. NO DISTRESS NOTED. RONALD LIQUOR BRIDGE OPERATOR ON UNIT TO SEE PT AT THIS TIME FOR . UPDATE GIVEN.
[2019-04-12 08:12] VITALS: BP 140/80
--- NOTE | 2019-04-12 10:27 | NUR ---
FREEMAN SALES ASSISTANT INSTITUTIONAL SALES ON UNIT TO SEE PT AT THIS TIME.
--- NOTE | 2019-04-12 11:52 | NUR ---
AM/EXERCISE/BINGO PT ATTENDED AND PARTICIPATED IN ALL GROUP ACTIVITY'S. PT STATES "I DON'T LIKE GAMES BUT I'LL PLAY TO PASS SOME TIME" PT DID NOT EXPRESS ANXXIETY OR PARANOIA AT THIS TIME AND WILL CONTINUE TO BE ENCOURAGED TO ATTEND AN DPARTICIPATE IN FUTURE GROUP SESSIONS. THIS STAFF WILL COMPLETE ACTIVITY ASSESSMENT THIS AFTERNOON.
--- NOTE | 2019-04-12 11:54 | NUR ---
AM/EXERCISE/BINGO PT DID NOT ATTEND OR PARTICIPATE DUE TO RESTING IN BED AT THIS TIME. PT WILL CONTNUE TO BE ENCOURAGED TO ATTEDN AND PARTICIPATE IN FUTURE RGOUP SESSIONS TO BEST OF ABILITY.
--- NOTE | 2019-04-12 14:00 | NUR ---
EXPRESS MANAGER FROM [employer] ON UNIT TO SEE PT AT THIS TIME.
--- NOTE | 2019-04-12 15:09 | NUR ---
P- CONFUSED, ISOLATIVE, DECLINES TO PARTICIPATE OR ATTEND GROUPS/ACTIVITIES. COMES OUT OF ROOM FOR MEALS. MED COMPLIANT WITHOUT DIFFICULTY THIS DATE. NO AGGRESSIVE BEHAVIORS OR SEXUALLY INAPPROPRIATE BEHAVIORS DISPLAYED OF THIS TIME IN THE SHIFT. I- ORIENTATION, MOOD AND BEHAVIOR ASSESSED. ASSESSED PT FOR SI/HI, INTENT OR PLAN. ASSESSED PT FOR S/S HALLUCINATIONS, PARANOIA AND/OR DELUSIONS. MEDICATIONS ADMINISTERED PER PHYSICIAN'S ORDERS. ASSISTANCE WITH ADL CARE PROVIDED NEEDED. ENCOURAGED PT TO ATTEND AND PARTICIPATE IN RICE MIL[place] GROUPS AND ACTIVITIES. R- PT IS ALERT AND ORIENTED TO SELF ONLY. CONFUSED IN ALL OTHER AREAS. MEMORY IMPAIRMENTS NOTED. RESPS EASY AND EVEN ON ROOM AIR. MOOD APPEARS STABLE, AFFECT FLAT. PT WITH MINIMAL SPONTANEOUS VERBALIZATIONS, ONLY GIVES SHORT 1-2 WORD RESPONSES TO QUESTIONS. PT DENIES SI/HI, INTENT OR PLAN. PT DENIES HALLUCINATIONS, NO RESPONSE TO INTERNAL STIMULI NOTED. NO PARANOIA OR DELUSIONS NOTED. PT HAS BEEN MEDICATION COMPLIANT THIS DATE WITHOUT DIFFICULTY. PT REMAINS ISOLATIVE TO ROOM, DECLINES TO ATTEND OR PARTICIPATE IN RICE MILIEU GROUPS AND/OR ACTIVITIES DESPITE STAFF ENCOURAGEMENT. PT COMES OUT OF ROOM FOR MEALS. DISPLAYS GOOD APPETITE WITH ADEQUATE FLUID INTAKE. PT RELIANT ON STAFF FOR ASSISTANCE WITH ADL CARE. ABLE TO FEED SELF WITH SET UP ASSIST. PT COMPLIANT WITH HANDS ON CARE. NO AGGRESSIVE BEHAVIORS OR SEXUALLY INAPPROPRIATE BEHAVIORS DISPLAYED OF THIS TIME IN THE SHIFT. NO DISTRESS NOTED. P- PLAN TO CONTINUE CURRENT TREATMENT; CONTINUE TO MONITOR MOOD AND BEHAVIORS, PROVIDE APPROPRIATE REORIENTATION, REDIRECTION AND 1:1 NEEDED. CONTINUE TO ENCOURAGE MEDICATION COMPLIANCE WELL GROUP ATTENDANCE AND PARTICIPATION.
--- NOTE | 2019-04-12 15:59 | NUR ---
PM/REMINISCE PT ATTENDED FIRST HALF OF GROUP TO DRINK COFFEE AND WATCH FOOTBALL GAME. PT PLEASANT AT THIS TIMNE WITH NO AGGRESSION OR SEXUALLY INAPPROPRIATE BEHAVIORS EXPRESSED. PT WILL CONTINUE TO ATTEND FUTURE GROUP SESSIONS AND PARTICIPATE TO BEST OF PT ABILITY.
--- NOTE | 2019-04-12 16:28 | NUR ---
SHIFT CHART CHECK COMPLETED.
[2019-04-12 19:56] VITALS: BP 136/78
--- NOTE | 2019-04-12 22:51 | NUR ---
P- ALERT TO PERSON ONLY. CONFUSION AND ST/LT MEMORY DEFICITS NOTED. ISOLATIVE TO ROOM, REFUSED HS SNACK. I- REORIENT FREQUENTLY WHEN CONFUSION IS NOTED. ENCOURAGE TO COME DOWN FOR HS SNACK AND INTERACT WITH PEERS/STAFF. PROVIDE WITH MEDICATIONS ON TIME WITH EDUCATION ON EACH. ONE ASSIST WITH ADLS AND CARE DUE TO CONFUSION. 1:1 INTERACTION WITH EMOTIONAL SUPPORT PROVIDED. R- PATIENT REMAINS AT BASELINE CONFUSION EVEN WITH REORIENTATION PROVIDED. PT REFUSED TO COME DOWN TO THE DINING ROOM FOR SNACK/INTERACTION, REMAINS ISOLATIVE TO ROOM. PT STATED, "TIRED, NO". MEDICATION COMPLIANT WITH HS MEDS. PT RESPONDS TO QUESTIONS IN SHORT PHRASES. PT INCONTINENT OF URINE AND BOWEL AT THIS TIME. ASSISTED PT IN GETTING CLEANED UP. PT STATED "OH, I CRAPPED" AND STARTED LAUGHING. VERY PLEASANT AND INTERACTICVE WITH STAFF, WENT BACK TO BED AFTER ASSISTING IN GETTING CLEANED UP. DENIES HALLUCINATIONS, SI/HI OR PAIN. NO S/S OF DELUSIONAL THOUGHT PROCESS NOTED. NO S/S OF DISTRESS NOTED. RESPS EVEN AND UNLABORED ON ROOM AIR. GAIT STEADY WHILE AMBULATING. P- REORIENT FREQUENTLY WHEN CONFUSION IS NOTED. 1:1 INTERACTION WITH EMOTIONAL SUPPORT PROVIDED WHEN NECESSARY. PROVIDE WITH MEDICATIONS ON TIME WITH EDUCATION ON EACH. ASSIST WITH ADLS AND CARE FREQUENTLY DUE TO CONFUSION. ENCOURAGE INTERACTION WITH PEERS AND STAFF. Q15 MINUTE CHECKS MAINTAINED FOR SAFETY.
--- NOTE | 2019-04-12 23:46 | NUR ---
24 HR chart check completed.
--- NOTE | 2019-04-13 05:54 | NUR ---
PATIENT MONITORED ON Q15 MINUTE SAFETY CHECKS THROUGHOUT THE NIGHT. PT NOTED TO HAVE SLEPT APPROXIMATELY 5 HOURS INTERMITTENTLY. WOKE UP INCONTINENT OF BOWEL, ASSISTED ON GETTING CLEANED UP AND BACK TO BED. PT UP SITTING IN DINING ROOM FOR ABOUT TWO HOURS, PT STATED "I AM NOT TIRED", THEN WENT TO BACK TO BED.
[2019-04-13 07:51] VITALS: BP 136/68
--- NOTE | 2019-04-13 08:01 | NUR ---
PT AWAKE AND ALERT. RESPS EASY AND EVEN ON ROOM AIR. FEEDING SELF BREAKFAST IN DINING ROOM WITH PEERS AT THIS TIME. NO DISTRESS NOTED. RONALD ELECTRICIAN SECOND ON UNIT TO SEE PT AT THIS TIME, UPDATE GIVEN.
--- NOTE | 2019-04-13 08:36 | NUR ---
FREEMAN COCONUT CANDY MAKER ON UNIT TO SEE PT AT THIS TIME.
--- NOTE | 2019-04-13 17:27 | NUR ---
P- CONFUSED. PLEASANT. LESS ISOLATIVE THIS SHIFT. NO AGGRESSIVE OR SEXUALLY INAPPROPRIATE BEHAVIORS DISPLAYED THIS SHIFT. I- ORIENTATION, MOOD AND BEHAVIORS ASSESSED. ASSESSED PT FOR SI/HI, INTENT OR PLAN. ASSESSED PT FOR S/S HALLUCINATIONS, PARANOIA AND/OR DELUSIONS. MEDICATIONS ADMINISTERED PER PHYSICIAN'S ORDERS. ASSISTANCE WITH ADL CARE PROVIDED NEEDED. ENCOURAGED PT TO ATTEND AND PARTICIPATE IN RICE [facility] GROUPS AND ACTIVITIES. R- PT IS ALERT AND ORIENTED TO SELF ONLY. CONFUSED IN ALL OTHER AREAS. MEMORY IMPAIRMENTS NOTED. RESPS EASY AND EVEN ON ROOM AIR. MOOD STABLE THIS SHIFT, PT CALM AND COOPERATIVE. PT DENIES SI/HI, INTENT OR PLAN. PT DENIES HALLUCINATIONS, NO RESPONSE TO INTERNAL STIMULI NOTED. NO PARANOIA OR DELUSIONS NOTED. PT HAS BEEN MEDICATION COMPLIANT THIS DATE WITHOUT DIFFICULTY. PT HAS NOT DISPLAYED ANY AGGRESSIVE OR SEXUALLY INAPPROPRIATE BEHAVIORS THIS SHIFT. PT NOTED TO HAVE BEEN LESS ISOLATIVE THIS SHIFT, PT HAS REMAINED IN DINING ROOM A LARGE MAJORITY OF THE DAY WATCHING FOOTBALL GAMES ON TV WITH PEERS. NO DISTRESS NOTED. P- PLAN TO CONTINUE CURRENT TREATMENT, CONTINUE TO MONITOR MOOD AND BEHAVIORS, PROVIDE APPROPRIATE REORIENTATION, REDIRECTION AND 1:1 NEEDED. CONTINUE TO ENCOURAGE MEDICATION COMPLIANCE WELL GROUP ATTENDANCE AND PARTICIPATION.
--- NOTE | 2019-04-13 18:56 | NUR ---
SHIFT CHART CHECK COMPLETED.
[2019-04-13 19:52] VITALS: BP 130/77
--- NOTE | 2019-04-14 02:54 | NUR ---
PT HAS RANDOM VERBAL OUTBURST WHEN APPROACHED BY STAFF FOR MEDICATIONS STATING "SON OF A BITCH" WITH IRRITATED LOOK ON FACE, WHEN REDIRECTED TO BY TELLING HIM IT IS JUST MEDICINE AND ITS QUICKER TO JUST TAKE THEM. PT WOULD TAKE MEDS QUICKLY AND SMILE. PT ALSO YELLED OUT "FUCK!" WHEN DIRECTING HIM TO GO TO THE BATHROOM TO ENCOURAGE CONTINENCE. PT NEVER ATTEMPTED TO STRIKE OUT AT STAFF AND MAINTAINED VERBAL WITH 1 OR 2 WORD STATEMENTS AND EASILY REDIRECTED. ENJOYED WATCHING FOOTBALL THIS EVENING. NO SI/HI OR DELUSIONS NOTED. CONTINUE TO MONITOR 15 MIN CHECKS
[2019-04-14 07:52] VITALS: BP 125/70
--- NOTE | 2019-04-14 08:30 | NUR ---
Treatment Plan meeting with Dr. Jeong, RN, AT, and Tire Balancer. Plan for discharge today. Pt. to return to [facility]. Notified Facility of discharge today. Spoke with Margoth Smith Axminster Rug Setter. Call placed to Pt. daughter and Left voice Message concerning discharge today. Transportation arranged with [facility] to transport with picker and packer time 12:00 p.m. Discharge Paperwork Faxed to Facility.
[2019-04-14] MEDS ORDERED: CITALOPRAM20 MG PO (08:42)
[2019-04-14] MEDS ORDERED: B121000 MCG/1 IM (08:42)
[2019-04-14] MEDS ORDERED: EXELON13.3 MG/21 T (08:42)
[2019-04-14] MEDS ORDERED: DIVALPROEX SOD500 MG PO (08:42)
[2019-04-14] MEDS ORDERED: MEMANTINE HCL10 MG PO (08:42)
--- NOTE | 2019-04-14 09:05 | NUR ---
ABELARDO SOLARES UPDATED ON PT DISCHARGE
--- NOTE | 2019-04-14 09:11 | NUR ---
MESSAGE LEFT FOR GUARDIAN REGARDING DISCHARGE
--- NOTE | 2019-04-14 09:30 | NUR ---
ABELARDO SOLARES ON UNIT TO ASSESS PT. UPDATE PROVIDED TO
--- NOTE | 2019-04-14 12:04 | NUR ---
AM GROUP/EXERCISE AND BRAIN GAMES PT DID NOT ATTEND MORNING GROUP THERAPY. PT WAS STILL IN BED SLEEPING
--- NOTE | 2019-04-14 12:18 | NUR ---
pt left unit at this time.
--- NOTE | 2019-04-14 14:58 | NUR ---
Patient discharged today to the [facility]. Follow-up will be with Dr Jeong, visiting psychiatrist. While at [facility], pt improved. Pt's mood improved and his behaviors were appropriate. Pt was pleasant but had limited interaction with staff and peers.
== END 2019-04-14 12:20 | DRG 883 ==
LOC: 3N 23:01
PROVIDERS: ADMIT Psychiatry & Neurology Psychiatry
DX: F63.81 Intermittent explosive disorder (principal); F03.91 Unspecified dementia, unspecified severity, with behavioral disturbance; F32.9 Major depressive disorder, single episode, unspecified; R56.9 Unspecified convulsions; E78.5 Hyperlipidemia, unspecified; E66.01 Morbid (severe) obesity due to excess calories; I50.9 Heart failure, unspecified; E03.9 Hypothyroidism, unspecified; E21.3 Hyperparathyroidism, unspecified; Z68.35 Body mass index [BMI] 35.0-35.9, adult; Z98.2 Presence of cerebrospinal fluid drainage device; Z87.820 Personal history of traumatic brain injury; Z88.8 Allergy status to other drugs, medicaments and biological substances; Z88.7 Allergy status to serum and vaccine; Z91.041 Radiographic dye allergy status; Z79.899 Other long term (current) drug therapy; Z79.82 Long term (current) use of aspirin